=== PATIENT | male | born 1985 | race African-American/Black ===

== ENCOUNTER 2021-08-18 21:10 | Emergency (ER) | payer OTHER ==
[~2021-08-18] VITALS: Ht 200.7 cm; Wt 115.2 kg
[2021-08-18] MEDS ORDERED: PROAIR HFA8.5 GM INH (23:13)
[2021-08-18 23:19] VITALS: BP 126/70
== END 2021-08-18 23:20 | disposition home or self-care (01) ==
LOC: ER 21:10
PROVIDERS: Emergency Medicine
DX: J06.9 Acute upper respiratory infection, unspecified (principal); Z20.822 Contact with and (suspected) exposure to COVID-19; R05.9 Cough, unspecified; R09.89 Other specified symptoms and signs involving the circulatory and respiratory systems; Z98.890 Other specified postprocedural states